=== PATIENT | female | born 1985 | race Hispanic/Latino ===

== ENCOUNTER 2019-06-16 13:29 | Emergency (ER) | payer OTHER ==
[~2019-06-16] VITALS: Ht 157.5 cm; Wt 63.5 kg
[2019-06-16] MEDS ORDERED: NAPROXEN375 MG PO (13:51)
--- OUTSIDE RECORDS SUMMARY | 2019-06-16 17:30 | XMS ---
PreManage Notification: SANDRA DELGADO Security Station Baggage Agent Events No recent Security Events currently on file CRITERIA MET - [facility] - 2 Visits in 30 Days CARE PROVIDERS CHARITO MOROCHO Nurse Practitioner: Family Current PHONE: [phone] VIRGIL MARTEL Primary Care Current PHONE: Unknown [facility] PHONE: [phone] [place] has no Care Guidelines for this patient. E.Brando. VISIT COUNT (12 MO.) 1 [facility] 1 [facility] [place]ax TOTAL 2 NOTE: Visits indicate total known visits. ED/UCC VISIT TRACKING (12 MO.) 06/16/2019 13:31 [facility] [place] TYPE: Emergency COMPLAINT: - ABDOMINAL PAIN 05/30/2019 12:37 [facility] [place] TYPE: Emergency DIAGNOSES: - Epigastric pain - DEHYDRATION INPATIENT VISIT TRACKING (12 MO.) No inpatient visits to display in this time frame [email or web address]
== END 2019-06-16 17:27 | disposition home or self-care (01) ==
LOC: ED 13:29
DX: K59.00 Constipation, unspecified (principal); Z88.0 Allergy status to penicillin; Z79.899 Other long term (current) drug therapy
CPT/HCPCS: 74177; 76705; 80053; 81001; 83690; 84703; 85025; 96361; 99284-25; J1885; J2405; J7030; Q9967

== ENCOUNTER 2021-09-23 18:01 | Emergency (ER) | payer OTHER ==
[~2021-09-23] VITALS: Ht 157.5 cm; Wt 76.6 kg
[~2021-09-23 18:01] MED LIST: NAPROXEN375 MG PO
[2021-09-23] MEDS ORDERED: SUMATRIPTAN SUC50 MG PO (21:16)
[2021-09-23] MEDS ORDERED: BUPROPION XL150 MG PO (21:16)
[2021-09-23] MEDS ORDERED: OXYBUTYNIN CHLOR5 MG PO (21:16)
[2021-09-23] MEDS ORDERED: FLUCONAZOLE150 MG PO (21:17)
[2021-09-23] MEDS ORDERED: MELOXICAM15 MG PO (21:17)
== END 2021-09-24 00:46 | disposition home or self-care (01) ==
LOC: ED 18:01
DX: J32.9 Chronic sinusitis, unspecified (principal); M54.50 Low back pain, unspecified; G89.29 Other chronic pain; Z88.0 Allergy status to penicillin; Z79.899 Other long term (current) drug therapy
CPT/HCPCS: 36415; 70450; 85025; 86140; 86141; 96361; 96374; 96375; 99284-25; J1200; J1885; J2765; J7030